=== PATIENT | female | born 1975 | race Asian ===

== ENCOUNTER 2017-02-08 04:09 | Emergency (ER) | payer OTHER ==
[~2017-02-08] VITALS: Ht 152.4 cm; Wt 44.5 kg
--- NOTE | 2017-02-08 04:26 | NUR ---
PT SIMONA. AMBULATORY TO ER BED 7, PT STATES SHE TOOK TOOK MISOPROSTOL YESTDERDAY FOR , VAGINAL BLEEDING SINCE YESTERDAY. PT AOX4 RR EVEN AND UNLABROED. NO SOB NOTED. NAD NOTED. NO NVD AT THIS TIME. PT GOWNED AND PLACED ON MONITOR WAITING FOR MD PALOMINO
--- NOTE | 2017-02-08 05:18 | NUR ---
RON AT BEDSIDE
[2017-02-08 05:21] LABS: CALCIUM, SERUM 8.8 mg/dL (8.5-10.1); CREATININE 0.7 mg/dL (0.6-1.3); POTASSIUM 3.9 mmol/L (3.5-5.1)
--- NOTE | 2017-02-08 05:47 | NUR ---
URINE COLLECTED. SENT TO LAB
[2017-02-08 05:53] LABS: APPEARANCE,URINE CLEAR (CLEAR); BILIRUBIN,URINE NEGATIVE (NEGATIVE); BLOOD, URINE 3+ Ery/uL (NEGATIVE); COLOR,URINE RED (YELLOW); KETONES,URINE 1+ (NEGATIVE); LEUKOCYTE ESTERASE ,URINE TRACE (NEGATIVE); NITRITE, URINE POSITIVE (NEGATIVE); PH,URINE 5.5 (5.0-8.0); PROTEIN,URINE 3+ mg/dl (NEGATIVE); UGLUCOSE TRACE mg/dL (NEGATIVE)
[2017-02-08 05:53] LABS: BASOPHILS % (AUTO) 0.1 % (0.0-2.0); EOSINOPHILS % (AUTO) 0.3 % (0.0-6.0); HEMATOCRIT 31 % (33-45); HEMOGLOBIN 10.3 g/dL (11.5-14.8); LYMPHOCYTES # (AUTO) 0.6 /CMM (0.8-4.8); LYMPHOCYTES % (AUTO) 5.4 % (20.0-44.0); MEAN CORPUSCULAR HEMOGLOBIN 30 PG (26.0-33.0); MEAN CORPUSCULAR HGB CONC 34 g/dl (31.0-36.0); MEAN CORPUSCULAR VOLUME 88 fL (82-100); MONOCYTES # (AUTO) 0.3 /CMM (0.1-1.30); MONOCYTES % (AUTO) 3.2 % (2.0-12.0); NEUTROPHILS # (AUTO) 9.7 /CMM (1.8-8.9); PLATELET COUNT (AUTO) 239 /CMM (150-450); RDW COEFFICIENT OF VARIATION 13.2 (11.5-15.0); RED BLOOD CELL COUNT(AUTO) 3.49 MIL/uL (4.0-5.2); WHITE BLOOD COUNT (AUTO) 10.7 K/uL (4.3-11.0)
[2017-02-08 06:01] LABS: PREGNANCY TEST URINE QUAL POSITIVE (NEGATIVE)
[2017-02-08 06:04] LABS: BACTERIA,URINE Few /HPF (None Seen); RBC,URINE TOO NUMEROUS TO COUN /HPF (0-2); SQUAMOUS EPITHELIAL CELL,UR Few /HPF (None Seen)
--- NOTE | 2017-02-08 06:21 | NUR ---
DR. HORNER AT BEDSIDE SPEAKING TO PT REGARDING RESULTS
--- NOTE | 2017-02-08 06:40 | NUR ---
IV removed. Catheter intact and site benign. Pressure and 4x4 applied to site. No bleeding noted. Patient discharged to home in stable condition. Written and verbal after care instructions given. Patient verbalizes understanding of instruction. ambulatory with a steady gait. pt accompanied by liborio,.
[2017-02-08 06:42] VITALS: BP 110/58
== END 2017-02-08 06:42 | disposition home or self-care (01) ==
LOC: ER 04:16
DX: O03.9 Complete or unspecified spontaneous abortion without complication (principal); D25.9 Leiomyoma of uterus, unspecified; D64.9 Anemia, unspecified; Z88.1 Allergy status to other antibiotic agents; Z88.8 Allergy status to other drugs, medicaments and biological substances
CPT/HCPCS: 36415; 76856-TC; 80048-TC; 81000-TC; 84703-TC; 85025-TC; 86850-TC; 87086-TC; A4606; J7030; Z7610